=== PATIENT | female | born 1980 | race Caucasian/White ===

== ENCOUNTER 2022-10-04 11:04 | Emergency (ER) | payer MEDICAID, SELFPAY ==
[2022-10-04 11:17] VITALS: BP 119/83; PULSE 101; RESP 18; TEMP 36.8; O2SAT 99; BMI 21.0
--- NOTE | 2022-10-04 11:56 | ED_ITS ---
HPI - General Adult General Chief complaint: Cough Stated complaint: Sore throat,headache,fever,cough, on antibiotic Time Seen by Provider: 10/04/22 11:25 History of Present Illness HPI narrative: 41-year-old woman presenting to the emergency department with complaint of sore throat. This is about 3rd day of symptoms. Was seen 2 days ago and suspected to have strep initiated on amoxicillin. At this time she was also diagnosed with a bilateral ?ear infection?. She has kept 2 doses down and apparently thrown up the 3rd just prior to arrival here. Notes severe sharp pain and difficulty swallowing. Having trouble swallowing pills. No trouble breathing although seems to indicate more discomfort when lying flat. Is particularly sore in the left side of her upper neck. Status post tonsillectomy remotely. No fevers measured. Tested negative 3 days ago to home COVID testing and screened for strep as noted. At time of this interview this result was still pending though treated as noted above. Vaccinated for COVID. Related Data Home Medications Medication Instructions Recorded Confirmed amoxicillin 500 mg capsule mg 10/04/22 dextroamphetamine-amphetamine 10 10/04/22 mg tablet fluconazole 150 mg tablet mg 10/04/22 hydrocodone 5 mg-acetaminophen 325 tab 10/04/22 mg tablet valacyclovir 1 gram tablet mg 10/04/22 Allergies Allergy/AdvReac Type Severity Reaction Status Date / Time latex Allergy Verified 10/04/22 11:16 shellfish derived Allergy Verified 10/04/22 11:16 Review of Systems Status of ROS: Reports: 10 or more systems reviewed and unremarkable except as noted in History and below PFSH [facility] Social History Smoking Status: Former smoker What tobacco products do you use: cigarettes Smoking quit date/years: <= 15 years ago How often do you have a drink containing alcohol: 2-3 times a week How many standard drinks containing alcohol do you have on a typical day: 1 or 2 How often do you have six or more drinks on one occasion: Never AUDIT-C Alcohol total score: 3 Non-prescribed substance use: denies use service: No Exam Narrative: Exam Narrative: Observed to be ambulating very gingerly slowly into the emergency department. Cranial nerves 2-12 intact.` Breathing easily. Skin is warm and dry without rash. Moves slowly speaks very quietly. Not laryngitic. No stridor. Mildly swollen left upper lymph node in the neck. Oropharynx is without evidence of tonsils and then no tonsillitis apparent. Mildly erythematous generally perhaps. No edema/induration no asymmetry. Lungs are clear. Heart with elevated rate in a regular rhythm. Abdomen is soft flat nontender. TMs bilaterally pearly and translucent maybe a little fluid behind the right one. No evidence of otitis media/infection or otitis externa. Rotation of the neck demonstrates supplements and not markedly exacerbating pain. Const: Vital Signs, click to edit/add: Vital Signs - 24 hr 10/04/22 11:17 Temperature 98.3 F Pulse Rate [Right Pulse Oximeter] 101 H Respiratory Rate 18 Blood Pressure [Ri ght Upper Arm] 119/83 Pulse Oximetry 99 Oxygen Delivery Me thod Room Air Documenting provider has reviewed patient's vital signs: yes Course Vital Signs Vital signs: Initial Vital Signs Temperature 98.3 F 10/04/22 11:17 Temperature Source Temporal Artery Scan 10/04/22 11:17 Pulse Rate 101 H 10/04/22 11:17 Respiratory Rate 18 10/04/22 11:17 Blood Pressure 119/83 10/04/22 11:17 Blood Pressure Mean 95 10/04/22 11:17 Blood Pressure Position Sitting 10/04/22 11:17 Pulse Oximetry 99 10/04/22 11:17 Oxygen Delivery Method 10/04/22 11:17 Vital Signs Temperature 98.3 F 10/04/22 11:17 Pulse Rate 101 H 10/04/22 11:17 Respiratory Rate 18 10/04/22 11:17 Blood Pressure 119/83 10/04/22 11:17 Pulse Oximetry 99 10/04/22 11:17 Oxygen Delivery Method 10/04/22 11:17 Temperature 98.3 F 10/04/22 11:17 Pulse Rate 101 H 10/04/22 11:17 Respiratory Rate 18 10/04/22 11:17 Blood Pressure 119/83 10/04/22 11:17 Pulse Oximetry 99 10/04/22 11:17 Oxygen Delivery Method 10/04/22 11:17 Medical Decision Making MDM Narrative Medical decision making narrative: Given degree of discomfort is demonstrating here did offer treatment for her pain. Settled on IV fluids as well as has been a couple of days since she reportedly has had any significant oral intake, as well as ketorolac. Given also Zofran. I think less likely that there is an abscess here and just a more significant pharyngitis. Did check some labs. White count is not elevated. There was suppress lymphocyte percentage. CRP mildly elevated at 3.5. Strep testing was negative and COVID test actually was positive. Negative for influenza and RSV. Ultimately considering pharyngitis perhaps more so than COVID was ordered for dosing of Solu-Medrol. Did receive another L of normal saline as well. Reassessment after effect of ketorolac and initial L of fluids had already shown marked improvement in symptoms and energy. I see no indication to continue amoxicillin Lab Data Lab results reviewed: Yes I reviewed the patient's lab results Labs: Lab Results 10/04/22 10/04/22 10/04/22 Range/Units 11:10 11:10 12:28 WBC 8.19 (4.50-11.00) K/uL RBC 4.31 (4.00-5.20) m/uL Hgb 13.1 (12.0-16.0) gm/dL Hct 39.2 (33.0-51.0) % MCV 91 (80-100) fL MCH 30 (26-34) pg MCHC 33 (32-36) gm/dL RDW Coeff of Lanie 11.7 (11.5-15.5) % Plt Count 198 (140-440) K/uL Neut % (Auto) 81.3 H (42.0-72.0) % Lymph % (Auto) 11.7 L (20-44) % Mcdonough % (Auto) 6.5 (0.0-11.0) % Eos % (Auto) 0.2 (0.0-7.0) % Baso % (Auto) 0.2 (0.0-3.0) % Neut # (Auto) 6.70 (1.7-7.0) K/uL Lymph # (Auto) 1.00 (0.90-2.90) K/uL Mcdonough # (Auto) 0.50 (0.00-0.90) K/UL Eos # (Auto) 0.02 (0.00-0.50) K/uL Baso # (Auto) 0.02 (0.00-0.30) K/uL C-Reactive Protein (0.5-1.0) mg/dL SARS-CoV-2 (PCR) POSITIVE SARS-CoV-2 A (Negative) Influenza Type A (PCR) Negative PCR FLU A (Negative) Influenza Type B (PCR) Negative PCR FLU B (Negative) RSV (PCR) Negative PCR RSV (Negative) Group A Strep DNA NOT DETECTED (Not Detectd) 10/04/22 Range/Units 12:28 WBC (4.50-11.00) K/uL RBC (4.00-5.20) m/uL Hgb (12.0-16.0) gm/dL Hct (33.0-51.0) % MCV (80-100) fL MCH (26-34) pg MCHC (32-36) gm/dL RDW Coeff of Lanie (11.5-15.5) % Plt Count (140-440) K/uL Neut % (Auto) (42.0-72.0) % Lymph % (Auto) (20-44) % Mcdonough % (Auto) (0.0-11.0) % Eos % (Auto) (0.0-7.0) % Baso % (Auto) (0.0-3.0) % Neut # (Auto) (1.7-7.0) K/uL Lymph # (Auto) (0.90-2.90) K/uL Mcdonough # (Auto) (0.00-0.90) K/UL Eos # (Auto) (0.00-0.50) K/uL Baso # (Auto) (0.00-0.30) K/uL C-Reactive Protein 3.5 H (0.5-1.0) mg/dL SARS-CoV-2 (PCR) (Negative) Influenza Type A (PCR) (Negative) Influenza Type B (PCR) (Negative) RSV (PCR) (Negative) Group A Strep DNA (Not Detectd) Discharge Plan Discharge Clinical Impression: COVID-19, Pharyngitis, Dehydration Patient Disposition: Home w/ Parent or Adult Condition: Improved Additional Instructions: Stay well-hydrated. Might sleep under the mist of a cool mist humidifier. Can take up to 800 mg of ibuprofen or up to 1000 mg of acetaminophen per dose. Alternative to the ibuprofen could be up to 500 mg of naproxen 2 times daily. Remember that each tablet of [place] has 325 mg of acetaminophen in it. If becoming increasingly short of breath, begin checking your oxygen saturation and return to the emergency department for oxygen saturations of 90% or less persistently. Otherwise return for increasing difficulty breathing that might be coming from throat symptoms. Quarantine for 10 days from onset of symptoms. [place] and prednisone from [facility] Four days of prednisone should be enough. Might try anesthetic throat lozenges or sprays from [id number]. Prescriptions: No Action amoxicillin 500 mg capsule Label Comments: TAKE 2 CAPSULES (1,000 MG) BY MOUTH ONCE DAILY FOR 10 DAYS. fluconazole 150 mg tablet Label Comments: TAKE 1 TABLET (150 MG) BY MOUTH ONE TIME FOR 1 DOSE. valacyclovir 1 gram tablet Label Comments: TAKE 1 TABLET BY MOUTH ONCE DAILY FOR 5 DAYS NEEDED FOR COLD SORE FLARE UPS hydrocodone-acetaminophen 5-325 mg tablet Label Comments: TAKE 1-2 TABLETS BY MOUTH EVERY 4 HOURS IF NEEDED FOR PAIN. MAX ACETAMINOPHEN DOSE 4000 MG IN 24 HRS. dextroamphetamine-amphetamine 10 mg tablet Label Comments: TAKE 1 TABLET (10 MG) BY MOUTH ONCE DAILY. Follow Up/Referrals: Provider,Not a Local [Primary Care Provider] - Stand Alone Forms: [facility] Info Instructions
[2022-10-04 11:57] LABS: Strep A DNA Probe* NOT DETECTED (Not Detectd)
[2022-10-04 12:11] LABS: PCR FLU A Negative PCR FLU A (Negative); PCR FLU B Negative PCR FLU B (Negative); PCR RSV Negative PCR RSV (Negative)
[2022-10-04 12:20] LABS: SARS PCR* POSITIVE SARS-CoV-2 (Negative)
[2022-10-04] MEDS: 0.9 % SODIUM CHLORIDE 1000 ml 1,000 ML IV (12:33)
[2022-10-04 12:41] LABS: Basophils Absolute Auto 0.02 K/uL (0.00-0.30); Basophils Percent Auto 0.2 % (0.0-3.0); Eosinophils Absolute Auto 0.02 K/uL (0.00-0.50); Eosinophils Percent Auto 0.2 % (0.0-7.0); Hematocrit 39.2 % (33.0-51.0); Hemoglobin* 13.1 gm/dL (12.0-16.0); Immature Granulocytes Abs Auto 0.01 K/uL (0.00-0.30); Immature Granulocytes Pct Auto 0.1 %; Lymphocytes Percent Auto 11.7 % (20-44); Mean Corpuscular HGB Conc 33 gm/dL (32-36); Mean Corpuscular Hemoglobin 30 pg (26-34); Mean Corpuscular Volume 91 fL (80-100); Monocytes Percent Auto 6.5 % (0.0-11.0); Neutrophils Percent Auto 81.3 % (42.0-72.0); Platelet Count* 198 K/uL (140-440); RDW Coefficient of Variation % 11.7 % (11.5-15.5); Red Blood Count 4.31 m/uL (4.00-5.20); White Blood Count* 8.19 K/uL (4.50-11.00)
[2022-10-04 12:44] LABS: Slide Review Reflex No
[2022-10-04] MEDS: ONDANSETRON 2 MG/ML inj 4 MG IVP (12:45)
[2022-10-04] MEDS: KETOROLAC 30 MG/ML inj IVP (12:45)
[2022-10-04 12:57] LABS: C Reactive Protein* 3.5 mg/dL (0.5-1.0)
[2022-10-04] MEDS: METHYLPREDNISOLONE SOD SUCC 62.5 MG/ML (125) 93.75 MG IVP (13:49)
[2022-10-04] MEDS: 0.9 % SODIUM CHLORIDE 1000 ml 1,000 ML 100 ML IV (13:50)
== END 2022-10-04 15:11 | disposition home or self-care (01) ==
PROVIDERS: Emergency Provider Family Medicine
DX: U07.1 COVID-19 (principal); E86.0 Dehydration
CPT/HCPCS: 36415; 85025; 86140; 87502; 87634; 87635; 87651; 96374; 96375; 99283; 99284; J1885; J2405; J2930; J7030